=== PATIENT | female | born 1970 | race Caucasian/White ===

== ENCOUNTER 2025-02-13 11:02 | Outpatient (AMB) | payer OTHER, SELFPAY ==
[2025-02-13 11:35] VITALS: BP 120/80; PULSE 82; O2SAT 96; BMI 36.2
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
--- OUTSIDE RECORDS SUMMARY | 2025-02-13 12:40 | XMS_ITS ---
Author Name [facility] Organization Unknown Care Team Organization Name Specialty Phone Email Start Date End Da te [facility] Faby Dobbs MD Primary Care 04/21/2022 10/03/2023 [facility] IZABELLA WHITMORE Primary Care 12/22/2021 10/03/19 24
--- OUTSIDE RECORDS SUMMARY | 2025-02-13 12:40 | XMS_ITS | Clinical Summary ---
Author Organization [address] [facility] Address [address] [place] [address] Phone Care Team Providers Care Network Planner Name Role Phone Faby Dobbs MD Primary Care Provider Allergies Active Allergy Reactions Criticality Noted Date Comments Hydromorphone 12/11/2015 Anxious Medications albuterol HFA (Ventolin HFA) 90 mcg/actuation inhaler INHALE 2 PUFFS EVERY 4-6HRS NEEDED 05/09/2023 Active cholecalciferol (VITAMIN D-3) 50 mcg (2,000 unit) capsule Take by mouth. Active vitamin K1-vitamin E TPGS 200 mcg-2 mg /0.2 mL drops Take by mouth. Active fluticasone propion-salmeter oL (ADVAIR DISKUS) 100-50 mcg/dose diskus inhaler Take 1 puff by mouth 2 (two) times a day. 07/04/2023 Active Active Problems Problem Noted Date Diagnosed Date Class 2 obesity 12/21/2024 Obstructive sleep apnea 12/21/2024 Chest pain 07/15/2023 Overview (11/17/2023): Last Assessment & Plan: Patient will be scheduled for routine stress test not the possibility of ischemic disease Class 2 obesity due to exces s calories without serious comorbidity in adult 07/13/2023 Gastroesophageal reflux disease 07/13/2023 Exertional dyspnea 07/13/2023 Mild persistent asthma without complication 06/15 Helicobacter pylori gastritis 11/16/2020 Pulmonary nodule 08/14/2020 Overview (11/17/2023): Incidental finding on CT chest 07/2020 COVID-19 virus detected 01/14/2020 Cervicalgia 11/25/2019 Overview (11/17/2023): Normal MRI of the cervical spine done in the emergency room October 2019 Lumbar disc herniation 07/08/2016 Overview (11/17/2023): L5-S1 disc herniation with extruded fragment Had MRI of the lumbar spine when she went to the emergency room October 2019 no stenosis Anxiety 01/13/2016 Fibromyalgia 01/13/2016 Depression 12/21/2004 Encounters Date Type Department Care Team Description 01/17/2025 [facility] [address] [address] Faby Dobbs MD 01/04/2025 9:45 AM EST Office Visit Obstetrics & Gynecology - [address] [id number] Mercy Fitzgerald CNM Mood swings (Primary Dx) 12/21/2024 9:08 AM EST - 12/21/2024 11:59 PM EST Hospital Encounter Radiology Department - [address] [phone] Encounter for screening mammogram for breast cancer Discharge Disposition: Home or Self Care from Last 3 Months Immunizations Immunization Administration Dates Next Due Hepatitis B (Gmqfrmc-X-Molxo , Recombivax HB-Adult) 19yo and older 04/14/2005,11/04/2004,10/14/2004 Influenza Quadravalent, MDCK , 0.5ml, preservative free (Flucelvax) 6mo and older 10/25/2022,10/30/2021 Moderna SARS-CoV-2 COVID-19, mRNA, LNP-S, preservative free 02/27/2021 PPD Test 09/08/2004 Pfizer (ages 12 & older) Bivalent, COVID-19 12/15 Pfizer SARS-CoV-2 COVID-19, mRNA, LNP-S, preservative free 01/01/2022 Td Tetanus diptheria (Tdvax) 7yo and older 10/08,10/22/2000 Td, Unspecified 10/08/2004,10/22/2000 Tdap Tetanus diptheria acell ular pertussis (Boostrix; Adacel) 7yo and older 12/22/2015 Surgical History Surgery Date Site/Laterality Comments TUBAL LIGATION 1999 PROCEDURE: HISTORICAL TUBAL LIGATION OTHER SURGICAL HISTORY PROCEDURE: MN DILATION & CURETTAGE DX&/THER NONOBSTETRIC Medical History Medical History Date Comments Fibromyalgia DX:Fibromyalgia Pre-diabetes DX:Pre-diabetes Depression 12/21/2004 DX:Depression Anxiety 01/13/2016 DX:Anxiety ADD (attention deficit disorder) 01/13/2016 DX:ADD (attention deficit disorder) Headache 01/13/2016 DX:Headache Lumbar disc herniation 07/08/2016 DX:Lumbar disc herniation; COMMENT: L5-S1 disc herniation with extruded fragment Family History Medical History Relation Name Comments Alzheimer's disease Aunt Suicide Attempts Brother 1 ADD / ADHD Daughter 1 Bipolar disorder Daughter 2 Other: Fibromyalgia Daughter 2 No Known Problems Father Dementia Maternal Grandmother Depression Mother Rheum arthritis Mother Depression Sister Diabetes Sister ADD / ADHD Son Breast cancer Neg Hx Cancer of Small Bowel Neg Hx Colon cancer Neg Hx Kidney cancer Neg Hx Ovarian cancer Neg Hx Pancreatic cancer Neg Hx Uterine cancer Neg Hx Relation Name Status Comments Aunt Alive Brother 1 Brother 2 Alive Daughter 1 Alive Daughter 2 Alive Father Alive Maternal Grandfather Maternal Grandmother Mother Alive Paternal Grandfather Paternal Grandmother Sister Son Alive Social History Tobacco Use Types Packs/Day Years Used Date Smoking Tobacco: Never Smokeless Tobacco: Never Tobacco Cessation:Counseling Given: Not Answered Alcohol Use Standard Drinks/Week Comments No 0 (1 standard drink = 0.6 oz pur e alcohol) Housing Instability Answer Date Recorde d Are you worried that in the next 2 months you may not have stable housing? No 02/23/2024 Food Access & Nutrition Answer Date Rec orded Do you have access to a vari ety of food including fruits and vegetables? Yes 02/23/2024 Access to Healthcare Answer Date Record ed Within the last 3 months, ho w many times did you visit the emergency department for your medical care? 0 02/23/2024 Health Literacy Answer Date Recorded How often do you need to hav e someone help you when you read instructions, pamphlets, or other written material from your doctor or pharmacy? Never 02/23/2024 Caregiver: How often do you need to have someone help you when you read instructions, pamphlets, or other written material from your doctor or pharmacy? Not on file 02/23/2024 Financial Risk Answer Date Recorded How hard is it for you to pa y for the very basics like food, housing, medical care, and air conditioning / heating? Not very hard 02/23/2024 Transportation Answer Date Recorded Has the lack of transportati on kept you from meetings, work, or from getting things needed for daily living? No Has the lack of transportati on kept you from medical appointments or from getting medications? No 02/23/2024 Social Isolation Answer Date Recorded How often do you feel lonely or isolated from those around you? Sometimes 02/23/2024 Food Risk Answer Date Recorded Within the past 12 months we worried whether our food would run out before we got money to buy more. Never true 02/23/2024 Within the past 12 months th e food we bought just didn't last and we didn't have money to get more. Never true 02/23/2024 Dependent Care Answer Date Recorded Do you need help finding or paying for care for your loved ones. For example, child care centre manager or elderly care for an older adult? No 02/23/2024 Education Answer Date Recorded Do you think completing more education or training, like finishing a GED, going to college, or learning a trade, would be helpful for you? N/A 02/23/2024 Employment and Income Answer Date Recor ded During the last four weeks, have you been actively looking for work? No 02/23/2024 Living Situation Answer Date Recorded What is your living situation? Unrecognized valu e 02/23/2024 Comments No Sex and Gender Information Value Date Recorded Sex Assigned at Female 05/18/2024 1:21 PM EDT Legal Sex Female 2:12 AM EST Gender Identity Female 05/18/2024 1:21 PM EDT Sexual Orientation Not on file Obstetrics History * This document contains information received from the source organization and may not represent a complete record from that organization. Para Term AB IAB SAB Ectopic Multiple Livin g Live Births 5 3 3 3 3 Date Outcome GA Total Labor Labor/2nd/3rd Weight Sex Type Anes PTL Maria Del Carmen A1 A5 Name Clin Term Vag-S pont Living Term Vag-S pont Living Term Vag-S pont Living Last Filed Vital Signs Vital Sign Reading Time Taken Comments Blood Pressure 119/84 01/04/2025 9:26 AM EST Pulse 85 01/04/2025 9:26 AM EST Temperature 36.2 C (97.2 F) 02/24/2024 9:03 AM EST Respiratory Rate 16 02/24/2024 9:03 AM EST Oxygen Saturation - - Inhaled Oxygen Concentration - - Weight 93.4 kg (205 lb 12.8 oz) 01/04/2025 9:26 AM EST Height 162.6 cm (5' 4 ) 01/04/2025 9:26 AM EST Body Mass Index 35.33 01/04/2025 9:26 AM EST Plan of Treatment Health Maintenance Due Date Last Done Comments Pneumococcal Vaccine: 50+ Years (1 of 2 - PCV) 1991 Hepatitis B Vaccines (3 of 3 - 19+ 3-dose series) 06/09/2005 04/14/2005, 11/04/2004, 10/14/2004 HIV Screening 01/23/2022 Hepatitis C Screening 01/23/2022 RSV Immunization Adult Patients (1 - Risk 50-74 years 1-dose series) 2022 Zoster Vaccines (1 of 2) 2022 COVID-19 Vaccine ( - 2024- season) 2024 01/01/2022, 01/01/2022, 02/27/2021, Additional history exists Influenza Vaccine (#1) 2024 10/25/2022, 2021 Social Influencers of Health Screening 02/22/2025 02/23/2024, 02/19/2020 Cervical Cancer Screening: HPV 05/05/2025 05/05/2020 DTaP,Tdap,and Td Vaccines (6 - Td or Tdap) 12/21/2025 12/22/2015, 10/08/2004, 10/08/2004, Additional history exists Breast Cancer Screening 12/21/2026 12/22/19, 11/25/2023, 11/25/2023, Additional history exists Cholesterol Screening (Lipid Panel) 08/01/2028 08/02/2023, 08/02/2023 Colorectal Cancer Screening: Colonoscopy 11/06/2030 11/06/2020, 11/06/2020 Depression Screening Completed 02/23/2024, 08/02/19 24 HIB Vaccines Aged Out No longer eligi ble based on patient's age to complete this topic HPV Vaccines Aged Out No longer eligi ble based on patient's age to complete this topic Hepatitis A Vaccines Aged Out No long er eligible based on patient's age to complete this topic IPV Vaccines Aged Out No longer eligi ble based on patient's age to complete this topic MMR Vaccines Aged Out No longer eligi ble based on patient's age to complete this topic Meningococcal ACWY Vaccine Aged Out N o longer eligible based on patient's age to complete this topic Meningococcal B Vaccine Aged Out No l onger eligible based on patient's age to complete this topic RSV Immunization Patients Under 20 months Aged Out No longer eligible based on patient's age to complete this topic Varicella Vaccines Aged Out No longer eligible based on patient's age to complete this topic Procedures Procedure Name Priority Date/Time Associated Diagnosis Comments MG MAMMO DIGITAL SCREENING W JOSUE BILAT Routine 12/21/2024 9:27 AM EST Encounter for screening mammogram for breast cancer DEPRESSION SCREENING Routine 08/02/2023 LIPID PANEL Routine 08/02/2023 COLONOSCOPY Routine 11/06/2020 HPV Routine 05/05/2020 from Last 3 Months or Most Recently Relevant to Health Maintenance Results * MG Mammo Digital Screening w Josue bilat (12/21/2024 9:27 AM EST) Anatomical Region Laterality Modality Breast Bilateral Mammography 12/24/2024 5:30 PM EST Impressions 12/24/2024 5:30 PM EST No mammographic evidence of malignancy. BREAST DENSITY: B - There are scattered areas of fibroglandular density. BI-RADS CATEGORY: 1 - NEGATIVE RECOMMENDATION: Screening bilateral mammogram is recommended in 1 year. MAMMO LOCATION: [facility], [address] [place] [address], [id number], . -------- FINAL REPORT -------- Dictated By: Emiliana Lim Dictated Date: 12/24/2024 17:30 ET Assigned Physician: Emiliana Lim Reviewed and Electronically Signed By: Emiliana Lim Signed Date: 12/24/2024 17:30 ET Workstation ID: [id number] Transcribed By: Self Edit Transcribed Date: 12/24/2024 17:30 ET Narrative 12/24/2024 5:30 PM EST EXAM: Screening Mammogram CLINICAL: 54 years old, Female, routine annual exam. COMPARISON: 11/25/2023 and as far back as 07/22/2020 TECHNIQUE: Bilateral MLO and CC views were obtained digitally with 3-D mammogram (digital breast tomosynthesis). Computer-aided detection was utilized in evaluation of this exam (CAD). FINDINGS: No new suspicious mass, architectural distortion, or suspicious calcifications. Procedure Note Emiliana Lim MD - 12/24/2024 EXAM: Screening Mammogram CLINICAL: 54 years old, Female, routine annual exam. COMPARISON: 11/25/2023 and as far back as 07/22/2020 TECHNIQUE: Bilateral MLO and CC views were obtained digitally with 3-Dmammogram (digital breast tomosynthesis). Computer-aided detection wasutilized in evaluation of this exam (CAD). FINDINGS: No new suspicious mass, architectural distortion, or suspiciouscalcifications. IMPRESSION: No mammographic evidence of malignancy. BREAST DENSITY: B - There are scattered areas of fibroglandular density. BI-RADS CATEGORY: 1 - NEGATIVE RECOMMENDATION: Screening bilateral mammogram is recommended in 1 year. MAMMO LOCATION: [facility], [address] [place] [address], [id number], . -------- FINAL REPORT -------- Dictated By: Emiliana Lim Dictated Date: 12/24/2024 17:30 ET Assigned Physician: Emiliana Lim Reviewed and Electronically Signed By: Emiliana Lim Signed Date: 12/24/2024 17:30 ET Workstation ID: [id number] Transcribed By: Self Edit Transcribed Date: 12/24/2024 17:30 ET Dragan Morgan CNJojo IMG BI PROCEDURES Final Resul t * Depression Screening (08/02/2023) [facility] Depression Screening abstracted Historical Provider HEALTH MAINTENANCE Final Result * (ABNORMAL) Lipid panel (08/02/2023) [facility] LDL/HDL Ratio 5(A) 0 - 4 Triglycerides 164(A) 0 - 150 mg/dL Cholesterol 166 0 - 200 mg/dL HDL 33(A) >=40 mg/dL LDL Cholesterol 101(A) 0 - 100 mg/dL Blood Venous blood specimen / Unknown Result [facility] Historical Provider LAB BLOOD ORDERABLES Valeria l Result * Colonoscopy (11/06/2020) [facility] Colonoscopy abstracted, no interpretation Anatomical Region Laterality Modality Other Historical Provider HEALTH MAINTENANCE Final Result * Cervical Cancer Screening: HPV (05/05/2020) [facility] Cervical Cancer Screening: HPV abstracted, negative Historical Provider HEALTH MAINTENANCE Final Result from Last 3 Months or Most Recently Relevant to Health Maintenance Insurance [facility] Advance Directives Documents on File Type Date Recorded Patient Talent Sourcing Specialist Expl anation Health Care Decision (hx) 12/03/2020 AD RAMIREZ DIRECTIVE Health Care Decision (hx) 12/03/2020 AD RAMIREZ DIRECTIVE Health Care Decision (hx) 12/03/2020 AD RAMIREZ DIRECTIVE Health Care Decision (hx) 12/03/2020 AD RAMIREZ DIRECTIVE Health Care Decision (hx) 12/03/2020 AD RAMIREZ DIRECTIVE Health Care Decision (hx) 12/03/2020 AD RAMIREZ DIRECTIVE Health Care Decision (hx) 12/03/2020 AD RAMIREZ DIRECTIVE Health Care Decision (hx) 12/03/2020 AD RAMIREZ DIRECTIVE Health Care Decision (hx) 12/03/2020 AD RAMIREZ DIRECTIVE Health Care Decision (hx) 09/16/2020 AD RAMIREZ DIRECTIVE Health Care Decision (hx) 09/16/2020 AD RAMIREZ DIRECTIVE Health Care Decision (hx) 09/16/2020 AD RAMIREZ DIRECTIVE Health Care Decision (hx) 09/16/2020 AD RAMIREZ DIRECTIVE Health Care Decision (hx) 09/16/2020 AD RAMIREZ DIRECTIVE Health Care Decision (hx) 09/16/2020 AD RAMIREZ DIRECTIVE Health Care Decision (hx) 09/16/2020 AD RAMIREZ DIRECTIVE Health Care Decision (hx) 09/16/2020 AD RAMIREZ DIRECTIVE Health Care Decision (hx) 09/16/2020 AD RAMIREZ DIRECTIVE Health Care Decision (hx) 09/16/2020 AD RAMIREZ DIRECTIVE Health Care Decision (hx) 09/16/2020 AD RAMIREZ DIRECTIVE Health Care Decision (hx) 09/16/2020 AD RAMIREZ DIRECTIVE Health Care Decision (hx) 09/16/2020 AD RAMIREZ DIRECTIVE Health Care Decision (hx) 09/16/2020 AD RAMIREZ DIRECTIVE Health Care Decision (hx) 09/16/2020 AD RAMIREZ DIRECTIVE Health Care Decision (hx) 09/16/2020 AD RAMIREZ DIRECTIVE Health Care Decision (hx) 09/16/2020 AD RAMIREZ DIRECTIVE Health Care Decision (hx) 09/16/2020 AD RAMIREZ DIRECTIVE Health Care Decision (hx) 09/16/2020 AD RAMIREZ DIRECTIVE Health Care Decision (hx) 09/16/2020 AD RAMIREZ DIRECTIVE Health Care Decision (hx) 09/16/2020 AD RAMIREZ DIRECTIVE Health Care Decision (hx) 09/16/2020 AD RAMIREZ DIRECTIVE Health Care Decision (hx) 09/16/2020 AD RAMIREZ DIRECTIVE Health Care Decision (hx) 09/16/2020 AD RAMIREZ DIRECTIVE Health Care Decision (hx) 09/16/2020 AD RAMIREZ DIRECTIVE Health Care Decision (hx) 09/16/2020 AD RAMIREZ DIRECTIVE Care Teams Network Planner Relationship Specialty Start Date End Date Faby Dobbs MD [address] [place] [address] PCP - General Internal Medicine 03/04/21
== END 2025-02-13 12:43 | disposition home or self-care (01) ==
LOC: HO.HSMS 11:02
PROVIDERS: PCP Internal Medicine; Visit Provider Nurse Practitioner Family
DX: G47.33 Obstructive sleep apnea (adult) (pediatric) (principal); G43.009 Migraine without aura, not intractable, without status migrainosus; R41.89 Other symptoms and signs involving cognitive functions and awareness
CPT/HCPCS: 99214

== ENCOUNTER → 2025-02-13 11:02 | Outpatient (BNVA) | payer OTHER, SELFPAY | PROVIDERS: PCP Internal Medicine; Visit Provider Nurse Practitioner Family | DX: G43.009 Migraine without aura, not intractable, without status migrainosus (principal); G47.33 Obstructive sleep apnea (adult) (pediatric); F09 Unspecified mental disorder due to known physiological condition; F40.298 Other specified phobia; Z99.89 Dependence on other enabling machines and devices; Z79.899 Other long term (current) drug therapy | CPT/HCPCS: 99212 ==